=== PATIENT | male | born 1955 | race Caucasian/White ===

== ENCOUNTER 2021-09-05 14:10 | Emergency (ER) | payer BC, OTHER ==
--- OUTSIDE RECORDS SUMMARY | 2021-09-05 14:13 | XMS REPORT | Continuity of Care Document ---
:1955 Author Organization [facility] t Address [address] [place] [address] Care Team Providers Name Role Phone Micky Attending Clinician Unavailable Micky Admitting Clinician Unavailable Payers Payer Name Policy Type Policy Number Effective Date Expiration Date S ource Problems This patient has no known problems. Allergies, Adverse Reactions, Alerts Allergy Allergy Status Severity Reaction(s) Onset Inactive Treating Comm ents Source Name Type Date Date Clinician No Known DA Active [facility] No Known DA Active [facility] Medications This patient has no known medications. Procedures Procedure Date / Time Performed Performing Clinician [facility] e [id number] 2021-03-10 00:00:00 [email or web address] [facility] Or [facility] Encounters Start End Encounter Admission Attending Care Care Encounter Source Date/Time Date/Time Type Type Clinicians Facility Department ID 2021-03-03 Inpatient RANJEET WeeksTO [id number] [facility] 13:30:00 Luigi [id number] [facility] 2021-03-10 2021-03-11 Inpatient EL RANJEET Weeks ADMI [id number] [facility] 07:09:00 13:43:00 Luigi [id number] [facility] 2021-03-03 2021-03-03 Outpatient CHASIDY WeeksWH SIST [id number] [facility] 18:22:00 18:22:00 [facility] [id number] [facility] 2021-03-03 2021-03-03 Outpatient KACY Weeks LABO [id number] 6-20 [facility] 18:19:00 18:19:00 Luigi [id number] [facility] Results Test Description Test Time Test Comments Results Result [facility] e Comments - XR PELVIS 1/2 2021-03-11 VIEWS 19:46:[address] [facility] : 1955 Sex: M Patient Name: MC FERNÁNDEZ Unit No: [id number] EXAMS: CPT CODE: [id number] XR PELVIS 09/28 VIEWS 27817 AP VIEW OF THE PELVIS. COMMENT: In progress total left hip arthroplasty. AP view of the pelvis COMMENT: COMPARISON: No prior exams available. Completed total left hip arthroplasty. Prosthesis appears to be in good position. at [facility] Reported and signed by: Homero Childress M.D. CC: Luigi Weeks MD Technologist: MARIA ELENA MILLER RT(R) Transcribed D/ (1945) [facility]: [facility] [address] [facility] [address] PHYS: MATVA.01 - Luigi Weeks : 1955 AGE: 65 SEX: M [place], [place] [address] LOC: YStephane519 A PHONE #: [phone] EXAM DATE: 03/10/2021 STATUS: DIS IN FAX #: [phone] RAD #: D/C DT 03/11/2021 PAGE 1 Signed Report Patient Name: MC FERNÁNDEZ Unit No: [id number] EXAMS: CPT CODE: [id number] XR PELVIS 1/2 VIEWS 78579 <Continued> Orig Print D/T: S: 03/11/2021 (1949) [facility] NAME: MC FERNÁNDEZ [address] [facility] PHYS: MATVA.01 - Luigi Weeks : 1955 AGE: 65 SEX: M [place], [place] [address] LOC: Y.519 A PHONE #: [phone] EXAM DATE: 03/10/2021 STATUS: DIS IN FAX #: [phone] RAD #: D/C DT 03/11/2021 PAGE 2 Signed Report - XR PELVIS 1/2 2021-03-11 VIEWS 19:46:00 [facility] : 1955 Sex: M Patient Name: MC FERNÁNDEZ Unit No: [id number] EXAMS: CPT CODE: [id number] XR PELVIS 1/2 VIEWS 28422 AP VIEW OF THE PELVIS. COMMENT: In progress total left hip arthroplasty. AP view of the pelvis COMMENT: COMPARISON: No prior exams available. Completed total left hip arthroplasty. Prosthesis appears to be in good position. at 194 Reported and signed by: Homero Childress M.D. CC: Luigi Weeks MD Technologist: ALIRIO ANDRADE RT(R) Transcribed D/ (1945) [facility] NAME: MC FERNÁNDEZ [address] [facility] PHYS: Luigi Jara : 1955 AGE: 65 SEX: M [place], [place] [address] LOC: Y.519 A PHONE #: [phone] EXAM DATE: 03/10/2021 STATUS: DIS IN FAX #: [phone] RAD #: D/C DT 03/11/2021 PAGE 1 Signed Report Patient Name: MC FERNÁNDEZ Unit No: [id number] EXAMS: CPT CODE: [id number] XR PELVIS 1/2 VIEWS 83887 <Continued> Orig Print D/T: S: 03/11/2021 (1948) [facility] NAME: MC FERNÁNDEZ [address] [facility] PHYS: Luigi Jara : 1955 AGE: 65 SEX: M [place], [place] [address] LOC: Y.519 A PHONE #: [phone] EXAM DATE: 03/10/2021 STATUS: DIS IN FAX #: [phone] RAD #: D/C DT 03/11/2021 PAGE 2 Signed Report HGB HCT 2021-03-11 05:45:00 Test Item Value Reference Range Interpretation Comme nts HEMOGLOBIN (test code = HGB) 14.1 g/dL 12-16 N HEMATOCRIT (test code = HCT) 40.8 % 37-47 N SPECIMEN COMMENT: POD #1Novel Coronavirus 2019 [id number] 14:48:00 Test Item Value Reference Range Interpretation Comments Novel Coronavirus Negative Negative Positive r esults are 2019 Inhouse (test indicativ e of the presence code = COVNONPUI) ofSARS-CoV -2 RNA, clinical correlation wit h patient historyand othe r diagnostic info rmation is necessary to determinepatien t infection status. Positiv e results do not rule out bacterial infection or co -infection with other viru ses. Negative result s do not preclude SARS-C oV-2 infection andsh ould not be used as the alber e basis for patient managementdecis ions. Negative result s must be combined with otherclinical observations, p atient history, and epidemiological information . Detection of SARS-CoV-2 RNA may be affe cted bysample collec tion methods, storag e conditions, and /or stageof infection. Carmina l RNA mutations, vacc inations, antiviraltherap eutics, antibiotics, chemotherapeuti c orimmunosuppres champ drugs have not been e valuated for effectson d etection. Results are for the identification of SARS-CoV-2 RNA usingthe Mercedes M2000 Sy stem under the [facility] Emergen cy UseAuthorizatio n. The testing is perf ormed by personneltraine d in the procedures for the Mercedes M2000 molecular diagnostic SARS-CoV-2 assa y in vitro. Novel Coronavirus 2018 [id number] 14:47:00 Test Item Value Reference Range Interpretation Comments Novel Coronavirus Negative Negative Positive r esults are 2019 Inhouse (test indicativ e of the presence code = COVNONPUI) ofSARS-CoV -2 RNA, clinical correlation wit h patient historyand othe r diagnostic info rmation is necessary to determinepatien t infection status. Positiv e results do not rule out bacterial infection or co -infection with other viru ses. Negative result s do not preclude SARS-C oV-2 infection andsh ould not be used as the alber e basis for patient managementdecis ions. Negative result s must be combined with otherclinical observations, p atient history, and epidemiological information . Detection of SARS-CoV-2 RNA may be affe cted bysample collec tion methods, storag e conditions, and /or stageof infection. Carmina l RNA mutations, vacc inations, antiviraltherap eutics, antibiotics, chemotherapeuti c orimmunosuppres champ drugs have not been e valuated for effectson d etection. Results are for the identification of SARS-CoV-2 RNA usingthe Mercedes M2000 Sy stem under the FDA Emergen cy UseAuthorizatio n. The testing is perf ormed by personneltraine d in the procedures for the Mercedes M2000 molecular diagnostic SARS-CoV-2 assa y in vitro. COMPREHENSIVE METABOLIC [id number] 20:46:00 Test Item Value Reference Range Interpretation Comments SODIUM (test code = 141 mmol/L 136-145 N NA) POTASSIUM (test code = 4.4 mmol/L 3.5-5.1 N K) CHLORIDE (test code = 103.0 mmol/L 98-107 N CL) CARBON DIOXIDE (test 27.3 mmol/L 21-32 N code = CO2) GLUCOSE (test code = 91 mg/dL 70-110 N GLU) BLOOD UREA NITROGEN 17 mg/dL 7-18 N (test code = BUN) GLOMERULAR FILTRATION 77.4 >60 Unit o f measure: RATE (test code = GFR) mL/mi n/1.73 [id number] Range:Healthy Adults >90 mL/min/1.73 m2 For Chronic Kidney Disease: St age II Mild Decrease in GFR 60-90 St age III Moderate Decrease in GFR 30-59 Stage IV Severe Decre ase in GFR 15- 29 Stage V Kidney Failure <15 CREATININE (test code 0.97 mg/dL 0.55-1.30 N = CREAT) TOTAL PROTEIN (test 6.9 g/dL 6.4-8.2 N code = PROT) ALBUMIN (test code = 4.1 g/dL 3.4-5.0 N ALB) GLOBULIN (test code = 2.8 g/dL 2.2-4.2 N GLOB) ALBUMIN/GLOBULIN RATIO 1.5 0.7-2.0 N (test code = A/G) CALCIUM (test code = 9.3 mg/dL 8.2-10.1 N CA) BILIRUBIN TOTAL (test 0.50 mg/dL 0.2-1.00 N code = BILT) SGOT/AST (test code = 21.0 U/L 15-37 N AST) SGPT/ALT (test code = 36.0 U/L 12-78 N Please note new ALT) normal range. ALKALINE PHOSPHATASE 67 U/L 46-116 N TOTAL (test code = ALKP) AB HIV 20:30:00 Test Item Value Reference Range Interpretation Comments AB HIV 1 (test code NONREACTIVE NONREACTIVE Done by [employer] = HIV1AB) 4th Gen HIV Ag/ Ab Combo Screen AB HIV 1 20:30:00 Test Item Value Reference Range Interpretation Comments AB HIV 1 2 (test NONREACTIVE NONREACTIVE Done by [employer] code = QJE00TH) 4th Gen HIV Ag/Ab Combo Screen CBC W/AUTO [id number] 16:19:00 Test Item Value Reference Range Interpretation Comments WHITE BLOOD CELL (test code = WBC) 5.5 K/mm3 5.7-10.5 L RED BLOOD CELL (test code = RBC) 4.54 M/mm3 4.2-5.4 N HEMOGLOBIN (test code = HGB) 14.7 g/dL 12-16 N HEMATOCRIT (test code = HCT) 42.5 % 37-47 N MEAN CELL VOLUME (test code = MCV) 94 fL 80-98 N MEAN CELL HGB (test code = MCH) 32.4 pg 27-34 N MEAN CELL HGB CONCENTRATION (test 34.6 g/dL 30.8-34.1 H code = MCHC) RED CELL DISTRIBUTION WIDTH (test 12.9 % 11-16 N code = RDW) PLT (test code = PLT) 327 K/mm3 130-400 N MEAN PLATELET VOLUME (test code = 10.0 fL 8.9-12.1 N MPV) NEUTROPHIL % (test code = NT%) 47.9 % 45-70 N LYMPHOCYTE % (test code = LY%) 42.7 % 20-40 H MONOCYTE % (test code = MO%) 7.0 % 3-10 N EOSINOPHIL % (test code = EO%) 1.5 % 1-5 N BASOPHIL % (test code = BA%) 0.5 % 0.0-1.1 N NEUTROPHIL # (test code = NT#) 2.62 K/mm3 2.00-7.50 N LYMPHOCYTE # (test code = LY#) 2.33 K/mm3 1.50-4.00 N MONOCYTE # (test code = MO#) 0.38 K/mm3 0.2-0.8 N EOSINOPHIL # (test code = EO#) 0.08 K/mm3 0.04-0.4 N BASOPHIL # (test code = BA#) 0.03 K/mm3 0.02-0.10 N MANUAL DIFF REQUIRED (test code = NO MANUAL DIFF MDIFF) NUCLEATED RED BLOOD CELL (test 0 % 0-0 N code = NRBC) THROMBOPLASTIN TIME [id number] 16:13:00 Test Item Value Reference Range Interpretation Comments PTT ACTIVATED (test 41.4 secs 24.9-37.0 HH VERIFIED BY REPEAT code = APTT) ANALYSIS.CRITIC AL VALUE CALLED TO PENNYREAD BACK & CONFIRMED? YESB Luan Roland.LAB.CD [id number] FAX ED TO THE DOCTOR'S JESS JONES. IS PATIENT ON ANTICOAGULANTS ? NHas Lab been notified if Patient is on Heparin Drip? NOIf Yes, orderCBC, OCCULT BLOOD, PT every other day NPROTHROMBIN TIME 2021-03-03 16:13:00 Test Item Value Reference Range Interpretation Comments PROTHROMBIN TIME 11.3 secs 10.1-12.5 N PATIENT (test code = PTP) INTERNATIONAL NORMAL 0.99 <2.0 RECOMME NDED THERAPEUTIC RATIO (test code = RANGE FOR ORAL INR) ANTICOAGULANTTR EATMENT: CONDI TION INRProphylaxis of venous thrombos is in 2.0 - 3.0 high-risk medic al or surgical patientsTreatme nt of venous thrombos is 2.0 - 3.0Prevention o f embolism 2.0 - 3.0Prevention o f recurrent embol ism, or 3.0 - 4. 5 patients with mechanical pros thetic intravascular v sunshine IS PATIENT ON ANTICOAGULANTS ? NHas Lab been notified if Patient is on Heparin Drip? NOIf Yes, orderCBC, OCCULT BLOOD, PT every other day N
[2021-09-05] MEDS ORDERED: LIDOCAINE 1% W/EPI 1:100,000 MDV 20 ML VIAL ONE (15:43)
[2021-09-05] MEDS ORDERED: TETANUS & DIPHTHERIA TOX,ADULT 0.5 ML VIAL ONE (15:44)
--- NOTE | 2021-09-05 16:42 | RAD REPORT ---
EXAM DESCRIPTION: RAD - Forearm Right - 09/05/2021 4:35 pm CLINICAL HISTORY: PAIN COMPARISON: No comparisons FINDINGS: No acute fracture. No malalignment. No significant focal degenerative changes. IMPRESSION: No acute osseous abnormality involving the right forearm.
--- NOTE | 2021-09-05 16:53 | ER ---
Nurse's Notes [facility] Name: Daniel Corrigan Age: 66 yrs Sex: Male : 1955 Arrival Date: 09/05/2021 Time: 14:23 Bed 9 Private MD: Diagnosis: Laceration without foreign body of right forearm Presentation: 09/05 14:46 Chief complaint: Patient states: was working in shop when some plywood fell onto Right vg1 forearm and lacerated it. Pt states at the time of incident began to sweat and felt dizzy but now if feeling 'ok'. Denies talking any blood thinners. Coronavirus screen: Vaccine status: Patient reports receiving the 2nd dose of the covid vaccine. Client denies travel out of the [place] in the last 14 days. Ebola Screen: Patient negative for fever greater than or equal to 101.5 degrees Fahrenheit, and additional compatible Ebola Virus Disease symptoms. Complicating Factors: There are no complicating factors for this patient. Initial Sepsis Screen: Does the patient meet any 2 criteria? No. Patient's initial sepsis screen is negative. Does the patient have a suspected source of infection? No. Patient's initial sepsis screen is negative. Risk Assessment: Do you want to hurt yourself or someone else? Patient reports no desire to harm self or others. Onset of symptoms was September 05, 2021. 14:46 Method Of Arrival: Ambulatory 1 14:46 Acuity: FRED 3 vg1 Triage Assessment: 14:50 General: Appears in no apparent distress. uncomfortable, Behavior is calm, cooperative. vg1 Pain: Complains of pain in dorsal aspect of right forearm Pain currently is 7 out of 10 on a pain scale. Pain began 1 hour ago. Injury Description: Laceration sustained to dorsal aspect of right forearm. Historical: - Allergies: 14:49 No Known Allergies; vg1 - Home Meds: 14:49 Lisinopril Oral [Active]; diclofenac oral [Active]; vg1 - PMHx: 14:50 Hypertensive disorder; vg1 - PSHx: 14:50 "coccyx bone"; Hip-Left; vg1 - Immunization history:: Client reports receiving the 2nd dose of the Covid vaccine. - Social history:: Smoking status: Patient denies any tobacco usage or history of. Screenin:55 Abuse screen: Denies threats or abuse. Denies injuries from another. Nutritional ss screening: No deficits noted. Tuberculosis screening: Never had TB. Fall Risk None identified. Assessment: 15:20 General: Appears in no apparent distress. Behavior is calm, cooperative. Pain: iw Complains of pain in dorsal aspect of right forearm. Neuro: Level of Consciousness is awake, alert, obeys commands, Oriented to person, place, time, situation, Moves all extremities. Cardiovascular: Patient's skin is warm and dry. Respiratory: Respiratory effort is even, unlabored, Respiratory pattern is regular. Derm: Musculoskeletal: Range of motion: intact in all extremities. Injury Description: Laceration sustained to dorsal aspect of right forearm is 2.6 to 7.5 cm long, was sustained is bleeding a small amount. Vital Signs: 14:46 BP 101 / 70; Pulse 56; Resp 16; Temp 97.5; Pulse Ox 98% ; Weight 77.11 kg; Height 5 ft. vg1 9 in. (175.26 cm); Pain 7/10; 14:46 Body Mass Index 25.10 (77.11 kg, 175.26 cm) vg1 ED Course: 14:23 Patient arrived in ED. am2 14:49 Triage completed. vg1 14:50 Arm band placed on. vg1 14:55 Patient has correct armband on for positive identification. Bed in low position. ss 15:04 Hailey Bragg, RN is Primary Nurse. iw 15:13 Jr Almodovar PA is PHCP. cp 15:13 Constantine Lopez MD is Attending Physician. cp 16:35 XRAY Forearm RIGHT In Process Unspecified. EDMS 17:14 Assist provider with laceration repair on dorsal aspect of right forearm that was iw between 7.6 to 12.5 cm using sutures. Set up tray. Performed by Jr MIRANDA Dressed with 4X4s, Neosporin, Patient tolerated well. Patient did not have IV access during this emergency room visit. 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 Exp: iw 01/28/2023. Lot #: [id number]. } Route: IM; Site: left deltoid; 16:20 Follow up: Response: No adverse reaction iw Outcome: 16:53 Discharge ordered by . titus 17:14 Discharged to home ambulatory, with family. iw 17:14 Condition: good 17:14 Discharge instructions given to patient, Instructed on discharge instructions, follow up and referral plans. medication usage, Demonstrated understanding of instructions, follow-up care, medications, Prescriptions given X 2. 17:14 Patient left the ED. iw Signatures: Dispatcher [employer] Hailey Palm RN RN iw Fidelina Saucedo RN RN ss Jr Almodovar, PA PA Katie Weinberg am2 Ember Son RN RN vg1
--- NOTE | 2021-09-05 16:54 | EDPHYS ---
Physician Documentation [facility] Name: Daniel Corrigan Age: 66 yrs Sex: Male : 1955 Arrival Date: 09/05/2021 Time: 14:23 Bed 9 Private MD: ED Physician Constantine Lopez HPI: 09/05 15:45 This 66 yrs old Male presents to ER via Ambulatory with complaints of Laceration To Arm.cp 15:45 The patient has a laceration occurred at home, The injury was slip and fall onto shop cp equipment. The laceration(s) is(are) located on the ulna side of right forearm. Onset: The symptoms/episode began/occurred just prior to arrival. Associated signs and symptoms: Pertinent negatives: heavy bleeding, numbness distal to injury. Historical: - Allergies: 14:49 No Known Allergies; vg1 - Home Meds: 14:49 Lisinopril Oral [Active]; diclofenac oral [Active]; vg1 - PMHx: 14:50 Hypertensive disorder; vg1 - PSHx: 14:50 "coccyx bone"; Hip-Left; vg1 - Immunization history:: Client reports receiving the 2nd dose of the Covid vaccine. - Social history:: Smoking status: Patient denies any tobacco usage or history of. ROS: 15:50 Constitutional: Negative for body aches, chills, fever. cp 15:50 Neck: Negative for pain with movement, pain at rest, stiffness. 15:50 Respiratory: Negative for cough, shortness of breath. 15:50 Abdomen/GI: Negative for abdominal pain, nausea, vomiting, and diarrhea. 15:50 Back: Negative for pain at rest, pain with movement. 15:50 Skin: Positive for laceration(s), of the ulna side of right forearm. 15:50 Neuro: Negative for altered mental status, headache, syncope, weakness. 15:50 All other systems are negative. Exam: 15:55 Constitutional: The patient appears in no acute distress, alert, awake, non-toxic, well cp developed, well nourished. 15:55 Head/Face: Normocephalic, atraumatic. cp 15:55 Neck: ROM/movement: is normal, is supple, without pain, no range of motions limitations. 15:55 Chest/axilla: Inspection: normal. 15:55 Cardiovascular: Rate: bradycardic. 15:55 Respiratory: the patient does not display signs of respiratory distress, Respirations: normal, no use of accessory muscles, no retractions. 15:55 Back: pain, is absent, ROM is normal. 15:55 Musculoskeletal/extremity: Extremities: grossly normal except: noted in the ulna side of right forearm: laceration, pain, tenderness, ROM: full active range of motion, in the right arm, Pulses: noted to be 2+ in the right radial artery. 15:55 Neuro: Orientation: to person, place \\T\\ time. Mentation: is normal, Motor: moves all fours, strength is normal, Sensation: is normal, Gait: is steady. Vital Signs: 14:46 BP 101 / 70; Pulse 56; Resp 16; Temp 97.5; Pulse Ox 98% ; Weight 77.11 kg; Height 5 ft. vg1 9 in. (175.26 cm); Pain 7/10; 14:46 Body Mass Index 25.10 (77.11 kg, 175.26 cm) vg1 Laceration: 17:00 Wound Repair of 5cm ( 2.0in ) subcutaneous laceration to ulna side right forearm. cp Irregularly shaped.. Distal neuro/vascular/tendon intact. Anesthesia: Wound infiltrated with 10 mls of 1% lidocaine w/ Epi. Wound prep: Moderate cleansing by me, Wound irrigation by me. Skin closed with 7 4-0 Prolene using interrupted sutures and sterile technique. Dressed with Bacitracin, 4x4's. Patient tolerated well. MDM: 15:13 Patient medically screened. cp 16:00 Differential diagnosis: superficial laceration, tendon injury, vascular injury. cp 16:53 Data reviewed: vital signs, nurses notes, radiologic studies, plain films. cp 16:53 Counseling: I had a detailed discussion with the patient and/or guardian regarding: the cp historical points, exam findings, and any diagnostic results supporting the discharge/admit diagnosis, radiology results, the need for outpatient follow up, a family practitioner, to return to the emergency department if symptoms worsen or persist or if there are any questions or concerns that arise at home. 16:53 Response to treatment: the patient's symptoms have markedly improved after treatment, cp and as a result, I will discharge patient. 09/05 15:30 Order name: XRAY Forearm RIGHT; Complete Time: 16:52 cp 09/05 16:52 Interpretation: Reviewed. 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 Exp: 01/28/2023. Lot #: [id number]. } Route: IM; Site: left deltoid; 16:20 Follow up: Response: No adverse reaction Disposition: 17:00 Chart complete. cp Disposition Summary: 09/05/21 16:53 Discharge Ordered Location: Home cp Problem: new cp Symptoms: have improved cp Condition: Stable cp Diagnosis - Laceration without foreign body of right forearm cp Followup: cp - With: Private Physician - When: 10 - 14 days - Reason: Staple/Suture removal Discharge Instructions: - Discharge Summary Sheet cp - Laceration Care, Adult cp Forms: - Medication Reconciliation Form cp - Thank You Letter cp - Antibiotic Education cp - Prescription Opioid Use cp Prescriptions: - Cephalexin 500 mg Oral Capsule - take 1 capsule by ORAL route every 6 hours for 7 days; 28 capsule; Refills: 0, cp Product Selection Permitted - Ibuprofen 800 mg Oral Tablet - take 1 tablet by ORAL route every 8 hours As needed take with food; 30 tablet; cp Refills: 0, Product Selection Permitted Addendum: 09/08/2021 11:20 Co-signature as Attending Physician, Constantine Lopez MD I agree with the assessment and k dr plan of care. Signatures: Dispatcher [employer] Constantine Valentino MD MD [facility] Hailey Bragg RN RN iw Jr Almodovar PA PA cp Ember Son RN RN vg1 Corrections: (The following items were deleted from the chart) 09/06 03:41 09/05 15:40 Skin: Positive for laceration(s), of the ulna side of right forearm, cp cp 09/06 03:41 09/05 15:40 Back: Negative for pain at rest, pain with movement, cp cp 09/06 03:41 09/05 15:40 Neck: Negative for pain with movement, pain at rest, stiffness, cp cp 09/06 03:41 09/05 15:40 Constitutional: Negative for body aches, chills, fever, cp cp 09/06 03:41 09/05 15:40 Respiratory: Negative for cough, shortness of breath, cp cp 09/06 03:41 09/05 15:40 Abdomen/GI: Negative for abdominal pain, nausea, vomiting, and diarrhea, cp cp 09/06 03:41 09/05 15:40 Neuro: Negative for altered mental status, headache, syncope, weakness, cp cp 09/06 03:41 09/05 15:40 All other systems are negative, cp cp
[2021-09-05 17:24] VITALS: BP 101/70; TEMP 97.5; O2SAT 98
== END 2021-09-05 17:14 | disposition home or self-care (01) ==
LOC: ER 14:10
PROC: 0JQG0ZZ Repair Right Lower Arm Subcutaneous Tissue and Fascia, Open Approach (ICD-10-PCS; principal; 2021-09-05)
DX: S51.811A Laceration without foreign body of right forearm, initial encounter (principal); W01.118A Fall on same level from slipping, tripping and stumbling with subsequent striking against other sharp object, initial encounter; Y92.009 Unspecified place in unspecified non-institutional (private) residence as the place of occurrence of the external cause; Z23 Encounter for immunization; I10 Essential (primary) hypertension
CPT/HCPCS: 90471; 90714; 99284